=== PATIENT | male | born 1970 | race Caucasian/White ===

== ENCOUNTER 2019-01-22 15:10 | Emergency (ER) | payer OTHER, SELFPAY ==
[2019-01-22 15:31] VITALS: BP 117/58; PULSE 62; RESP 18; TEMP 36.7; O2SAT 99
--- NOTE | 2019-01-22 15:38 | ED.GENADUL_ITS ---
Discharge Plan Disposition Patient Disposition: HOME Condition: Stable Discharge Details Chief Complaint: GenMedical Clinical Impression: Fracture of right calcaneus, Electrical injuries Primary Care Provider: Andrés Blanco ED Provider: Adrian Webber Home Meds and New Rx's Prescriptions: New oxycodone 5 mg tablet 5 mg PO DAILY Qty: 12 RF: 0 Discharge Instructions Instructions: Calcaneal Fracture (ED) Additional Instructions: follow up with your orthopedist within 1 week if you have new symptoms such as abdominal pain or difficulty breathing return to the emergency department you can take 1000mg tylenol and 600mg ibuprofen every 6 hours for pain as needed Medical Decision Making 48 yo male comes in with right heal/ankle pain. HE was kneeling on a ladder about 6 feet up cutting wire when he was electrocuted in the hands with 120v wire per pt and ems. He fell and landed in standing position on his right foot. He began walking, felt faint, sat down then had brief loc, no seizure like activity. Denies hitting head or having any headache, neck pain, back pain, abd pain or chest pain. He has pain over the right calcaneus. Full rom of the ankle though with pain and intact sensation. Suspect contusion but will xray the ankle and also obtain lab work to eval for electroltye abnormality. Suspect vasovagal syncope given description, ecg unremarkable, will keep on tele. Given low voltage electrical injury do not feel referral to trauma center indicated at current time labs unremarkable, xray confirms calcaneus fx. Sitill no lumbar pain. He has ortho up in [facility] that he would like to f/u. Will d/c home and have him f/u with them, return precautions given Differential Diagnosis fx, vasovagal, syncope Imaging Data Radiologic Study: Attestation: I personally reviewed and interpreted this imaging study as follows: Imaging: X-Ray Radiologist's impression: IMPRESSION: Calcaneal fracture as described Lab Data Lab results reviewed: Yes I reviewed the patient's lab results. ECG Data Attestation: I personally reviewed and interpreted this ECG (s) as follows: Prior ECG tracings: not available for review Interpretation: sinus bradycardia, rate of 55, pr 186, no acute st t wave ischemic findings HPI General Mode of arrival: EMS . Date/Time Provider Initiated Documentation: 01/22/19 15:14 . Limitations to Documentation: no limitations . Information obtained by: patient . History of Present Illness 48 year old M presents to the emergency department with the chief complaint of right heal pain, described as moderate, Quality is described as aching, and is localized to the right and lower extremity. Patient reports no radiation. Patient started experiencing this hour(s) (1) and it has been constant. No relieving factors improve symptom(s), No exacerbating factors reported . Patient notes no other symptoms.. Patient did receive the following treatments prior to arrival, none Related Data Home Medications Medication Instructions Recorded Confirmed oxycodone 5 mg PO DAILY #12 tab 01/22/19 Previous Rx's Medication Instructions Recorded oxycodone 5 mg PO DAILY #12 tab 01/22/19 Allergies Allergy/AdvReac Type Severity Reaction Status Date / Time amoxicillin Allergy Intermediate Hives Unverified 01/22/19 15:34 General Stated Complaint: GenMedical RHIANNON: 2 Review of Systems Review of Systems All systems reviewed & are unremarkable except as noted in HPI and below Constitutional Denies chills, Denies fever(s) and Denies weakness Cardiovascular Denies chest pain and Denies dyspnea Respiratory Denies cough and Denies dyspnea Gastrointestinal Denies abdominal pain, Denies nausea and Denies vomiting Integumentary/Breasts Denies rash Neurologic Denies weakness Exam Const General: no acute distress Orientation: alert HENMT Head: normal to inspection Ears: external ears normal General nose exam: external nose normal Mouth: moist mucous membranes Eyes General: appearance normal, both eyes and all related structures Neck Neck: normal visual inspection Resp Effort & Inspection: normal respiratory effort and able to speak in complete sentences Cardio Rate: regular rate Skin General skin exam: no rashes or lesions noted Neuro General: alert and oriented x3 Extrem General: normal capillary refill Psych Mental Status: mental status grossly normal Course Vital Signs Temperature 36.7 C 01/22/19 15:31 Pulse 62 01/22/19 15:31 Respiratory Rate 18 01/22/19 15:31 Blood Pressure 117/58 L 01/22/19 15:31 Pulse Oximetry 99 01/22/19 15:31 Temperature 36.7 C 01/22/19 15:31 Temperature Source Skin 01/22/19 15:31 Pulse 62 01/22/19 15:31 Respiratory Rate 18 01/22/19 15:31 Blood Pressure 117/58 L 01/22/19 15:31 Pulse Oximetry 99 01/22/19 15:31 Oxygen Delivery Method Room Air 01/22/19 15:31 Oxygen Flow Rate 0 01/22/19 15:31 Pain Level 8 01/22/19 15:31
[2019-01-22 15:50] LABS: Abs Immature Grans 0.01 k/cumm (0.0-0.09); Absolute Basophil Count 0.05 k/cumm (0.0-0.2); Absolute Eosinophil Count 0.08 k/cumm (0.0-0.7); Absolute Lymphocyte Count 2.18 k/cumm (1.2-3.4); Absolute Monocyte Count 0.51 k/cumm (0.11-0.7); Absolute Neutrophil Count 2.36 k/cumm (1.2-6.7); Eosinophils % 1.5; HCT 44.5 % (40.0-50.0); HGB 14.9 g/dL (13.5-17.5); Immature Grans % 0.2; Mean Corp. HGB Concentration 33.5 g/dL (32.0-36.0); Mean Corpuscular Hemoglobin 28.4 pg (27.0-33.0); Mean Corpuscular Volume 84.8 fL (80-95); Mean Platelet Volume 8.6 fL (8.0-11.0); Monocytes % 9.8; Neutrophils % 45.5; Platelet Count 203 x1000/uL (130-400); RBC 5.25 m/cumm (4.50-6.00); RBC Distribution Width 12.4 % (11.8-14.1); White Blood Cell Count 5.19 k/cumm (4.4-10.8)
--- NOTE | 2019-01-22 15:57 | DI.RAD_ITS ---
SYMPTOM/DIAGNOSIS: PAIN, S/P FALL OVER CALCANEUS RIGHT ANKLE: Three views. There is a nondisplaced fracture involving the posterior process of the right calcaneus. No other fracture or dislocation is identified. The ankle joint appears to be intact. IMPRESSION: Nondisplaced right calcaneal fracture.
[2019-01-22 16:11] LABS: ALT 39 U/L (12-78); AST 20 U/L (15-37); Albumin 4.1 g/dL (3.4-5.0); Alkaline Phosphatase 83 U/L (46-116); BUN 22 mg/dL (7-18); Bilirubin, Total 0.7 mg/dL (0.2-1.0); CREATININE 1.13 mg/dL (0.70-1.30); Calcium 8.1 mg/dL (8.5-10.1); Chloride 101 mmol/L (98-107); Glucose 92 mg/dL (70-100); Magnesium 1.9 mg/dL (1.8-2.4); NT-proBNP 17 pg/mL; Potassium 3.8 mmol/L (3.5-5.1); Sodium 138 mmol/L (136-145); Total Protein 7.2 g/dL (6.4-8.2); Troponin I < 0.02 ng/mL (0.00-0.06)
--- NOTE | 2019-01-22 16:12 | DI.RAD_ITS ---
SYMPTOM/DIAGNOSIS: PAIN, S/P FALL RIGHT HEEL: Two views. There is a fracture seen at the posterior process of the calcaneus. The fracture appears to have both horizontal and vertical component. It does appear to extend in to the medial cortex of the calcaneus. No significant loss of height of the calcaneus is seen. No radiopaque foreign bodies are seen in the soft tissues. IMPRESSION: Nondisplaced calcaneal fracture.
--- NOTE | 2019-01-22 16:48 | DI.VRAD_ITS ---
EXAM: XR Right Calcaneus EXAM DATE/TIME: 01/22/2019 4:12 PM CLINICAL HISTORY: 48 years old, male; Pain; Heel; Right; Patient HX: Fell today TECHNIQUE: Imaging protocol: XR of the Right calcaneus. Views: 2 or more views. COMPARISON: No relevant prior studies available. FINDINGS: Bones/joints: There is fracture of the calcaneus. The calcaneus is not significantly decreased in height. Fracture extends to the medial cortical surface. Soft tissues: Soft tissues are unremarkable IMPRESSION: Calcaneal fracture as described Dictated and Authenticated by: Iva Rosas MD. Ordering:SUJATHA Campbell MD
[2019-01-22] MEDS: Ibuprofen 600 MG TAB PO (16:53)
[2019-01-22 17:20] VITALS: BP 125/76
== END 2019-01-22 17:28 | disposition home or self-care (01) ==
PROVIDERS: Emergency Provider Emergency Medicine; PCP Internal Medicine
DX: S92.011A Displaced fracture of body of right calcaneus, initial encounter for closed fracture (principal); T75.4XXA Electrocution, initial encounter; W11.XXXA Fall on and from ladder, initial encounter
CPT/HCPCS: 36415; 80053; 93005; 99285; 73610; 73650; 83735; 83880; 84484; 85025; 93010; E0114

== ENCOUNTER 2020-04-01 17:27 | Outpatient (REF) | payer OTHER, SELFPAY ==
[2020-04-01 19:09] LABS: Calculated LDL 151 mg/dL (<100); Cholesterol 236 mg/dL (<200); HDL Cholesterol 49 mg/dL (40-60); Triglyceride 180 mg/dL (<150)
== END 2020-04-01 17:47 ==
LOC: NCHCN 17:27
PROVIDERS: PCP Internal Medicine; Visit Provider Internal Medicine
DX: Z00.00 Encounter for general adult medical examination without abnormal findings (principal); Z13.220 Encounter for screening for lipoid disorders
CPT/HCPCS: 80061

== ENCOUNTER 2022-08-25 17:33 | Outpatient (REF) | payer OTHER, SELFPAY ==
[2022-08-25 19:32] LABS: Anion Gap 5.2 mmol/L (3-11); BUN 22 mg/dL (7-18); CO2 29.8 mmol/L (21.0-32.0); CREATININE 0.9 mg/dL (0.70-1.30); Calcium 9.5 mg/dL (8.5-10.1); Calculated LDL 180 mg/dL (<100); Chloride 104 mmol/L (98-107); Cholesterol 260 mg/dL (<200); Estimated GFR 102.76 (mL/min/1.73m2); Glucose 84 mg/dL (74-106); HDL Cholesterol 56 mg/dL (40-60); Potassium 4.2 mmol/L (3.5-5.1); Sodium 139 mmol/L (136-145); Triglyceride 121 mg/dL (<150)
== END 2022-08-25 17:34 | disposition home or self-care (01) ==
LOC: NCHCN 17:33
PROVIDERS: PCP Internal Medicine; Visit Provider Internal Medicine
DX: Z00.00 Encounter for general adult medical examination without abnormal findings (principal); Q23.1 Congenital insufficiency of aortic valve; E66.3 Overweight; R03.0 Elevated blood-pressure reading, without diagnosis of hypertension
CPT/HCPCS: 80048; 80061